=== PATIENT | female | born 1985 | race Caucasian/White ===

== ENCOUNTER 2023-05-16 06:55 | Day surgery (SDC) | payer OTHER, SELFPAY ==
[2023-04-08 11:39] VITALS: BMI 37.1
[2023-04-08 13:32] VITALS: BMI 37.0
--- NOTE | 2023-05-16 08:21 | WPDANESEPPF ---
Anes - Initial Pre Proc Eval Procedure: Operation Date: 05/16/23 09:30 Proposed Procedures p Colonoscopy - Giovanny Carlos MD Date/Time: 05/16/23 08:21 Surgeon: Giovanny Carlos MD Pre Op Diagnosis: Constipation, Hemorrhage of Anus and Rectum Patient Data Age: 37 Gender: F Height: 1.52 m Weight: 86.35 kg Allergies Allergy/AdvReac Type Severity Reaction Status Date / Time No Known Allergies Allergy Verified 05/16/23 08:10 Home Medications Medication Instructions Recorded Confirmed Type linaclotide 145 mcg capsule 145 mcg PO DAILY 04/05/23 05/16/23 History (Linzess) multivitamin (Daily Multi-Vitamin 1 tablet PO DAILY 04/05/23 05/16/23 History tablet) psyllium husk 0.52 gram capsule 0.52 g PO DAILY 04/05/23 05/16/23 History (Daily Fiber) benzonatate 200 mg capsule 200 mg PO TID #90 caps 04/22/23 05/16/23 Rx codeine 10 mg-guaifenesin 100 mg/5 5 ml PO Q6H PRN flu symptoms #250 04/22/23 05/16/23 Rx mL oral liquid mL Patient hx anesthesia problems: none Family hx anesthesia problems: none Results Review: All pre-operative results and documents have been reviewed as part of the pre-operative evaluation. [facility] Past Medical History Medical History Abdominal bloating Appendicitis BRBPR (bright red blood per rectum) Chronic constipation Gallbladder & bile duct stone, acute cholecystitis and obstruction Mucus in stool Obesity Ovarian mass R ovary Tenesmus Surgical History Surgical History H/O oophorectomy R side Hx of appendectomy Hx of cholecystectomy Hx of tonsillectomy Family History Family History Father Hypertension Heart disease Grandparent Diabetes mellitus Heart disease Hypertension Social History Social History Social History: Smoking status: Never smoker Second hand tobacco smoke exposure: No Alcohol intake: current Alcohol use details: rarely Substance use: never Substance use type: does not use Lack of Transportation: No Lack of Food: Never True Current Housing: I Have Housing Concerned About Future Housing: No Difficulty Paying Gas/Electric Bills: No Difficulty Paying for Meds: No Currently Unemployed: No Education: Bachelor's Degree Difficulty w/ Childcare or Family Care: No Living arrangements: with family Occupation/Education: occupation Additional occupation/education comments: Teacher Gender identity (if verbalized by the patient): Female Sexual Orientation (if Verbalized by the Patient): Straight or Heterosexual Spiritual care concerns: No Anes - Eval Final PreProcedure Day of Procedure 05/16/23 08:21 Patient weight: obese Heart: regular rate and rhythm Lungs: clear to auscultation Airway: Mallampati scale class II Neurological: alert and oriented Last oral intake: >/= 8 hours ASA classification: II Emergent: no Anesthetic plan: proceed Anesthesia type and monitoring: general GIVS and standard monitoring Results Review: All pre-operative results and documents have been reviewed as part of the pre-operative evaluation. Informed Consent: The patient's anesthetic plan and its attendant risks and benefits were discussed with the patient/family/POA. Questions were solicited and answers provided to the satisfaction of the patient/family/POA.
[2023-05-16 08:22] VITALS: BP 126/88; PULSE 89; RESP 16; TEMP 36.9; O2SAT 98
[2023-05-16] MEDS: LACTATED RINGERS 1,000 ML 150 ML IV CONT (08:29)
--- NOTE | 2023-05-16 08:57 | PM.HPGS ---
History of Present Illness History of Present Illness Consent: Risks, benefits, and alternatives have been discussed and questions answered. Patient agrees to proceed with procedure. Chief complaint: Constipation, Hemorrhage of Anus and Rectum Narrative: Paty Cantu is a 37 year old female with chronic constipation on linzess, never had colonoscopy Review of Systems Constitutional: Constitutional: Denies headache(s) and Denies weakness Eyes: Eyes: Denies blurry vision ENT: Reports Normal hearing present, Denies headache(s) and Denies neck pain Cardiovascular: Cardiovascular: Denies chest pain and Denies dyspnea Respiratory: Respiratory: Denies dyspnea Gastrointestinal: Gastrointestinal: Reports no additional gastrointestinal complaints Genitourinary: Genitourinary: Denies dysuria Musculoskeletal: Musculoskeletal: Denies neck pain Integumentary/Breasts: Skin/Breast: Denies dry skin Neurologic: Reports Normal hearing present, Denies headache(s) and Denies weakness Psychiatric: Psychiatric: Denies anxiety Endocrine: Endocrine: Denies change in body appearance Hematologic/Lymphatic: Hematologic/Lymphatic: Denies easy bleeding Allergic/Immunologic: Allergic/Immunologic: Denies urticaria PMFSH Past Medical History Medical History Abdominal bloating Appendicitis BRBPR (bright red blood per rectum) Chronic constipation Gallbladder & bile duct stone, acute cholecystitis and obstruction Mucus in stool Obesity Ovarian mass R ovary Tenesmus Surgical History Surgical History H/O oophorectomy R side Hx of appendectomy Hx of cholecystectomy Hx of tonsillectomy Family History Family History Father Hypertension Heart disease Grandparent Diabetes mellitus Heart disease Hypertension Social History Social History Social History: Smoking status: Never smoker Second hand tobacco smoke exposure: No Alcohol intake: current Alcohol use details: rarely Substance use: never Substance use type: does not use Lack of Transportation: No Lack of Food: Never True Current Housing: I Have Housing Concerned About Future Housing: No Difficulty Paying Gas/Electric Bills: No Difficulty Paying for Meds: No Currently Unemployed: No Education: Bachelor's Degree Difficulty w/ Childcare or Family Care: No Living arrangements: with family Occupation/Education: occupation Additional occupation/education comments: Teacher Gender identity (if verbalized by the patient): Female Sexual Orientation (if Verbalized by the Patient): Straight or Heterosexual Spiritual care concerns: No Meds Home Medications and Allergies Home Medications Medication Instructions Recorded Confirmed Type linaclotide 145 mcg capsule 145 mcg PO DAILY 04/05/23 05/16/23 History (Linzess) multivitamin (Daily Multi-Vitamin 1 tablet PO DAILY 04/05/23 05/16/23 History tablet) psyllium husk 0.52 gram capsule 0.52 g PO DAILY 04/05/23 05/16/23 History (Daily Fiber) benzonatate 200 mg capsule 200 mg PO TID #90 caps 04/22/23 05/16/23 Rx codeine 10 mg-guaifenesin 100 mg/5 5 ml PO Q6H PRN flu symptoms #250 04/22/23 05/16/23 Rx mL oral liquid mL Allergies Allergy/AdvReac Type Severity Reaction Status Date / Time No Known Allergies Allergy Verified 05/16/23 08:10 Vital Signs Vital Signs - 24 hr 05/16/23 08:22 Temperature 98.4 F Pulse Rate 89 Respiratory Rate 16 Blood Pressure 126/88 Pulse Oximetry 98 Oxygen Delivery Room Air Exam Const: General: comfortable and no acute distress HENMT: Face/Nose/Sinus: Normal nares present Eyes: General: appearance normal, both eyes and all related structures Neck: Neck: no JVD Resp: Auscul
[2023-05-16 09:22] VITALS: BP 116/71; PULSE 69; RESP 16; O2SAT 100
[2023-05-16 09:33] VITALS: BP 117/57; PULSE 69; RESP 16; O2SAT 100
[2023-05-16 09:44] VITALS: BP 121/92; PULSE 95; RESP 16; O2SAT 100
== END 2023-05-16 09:50 | disposition home or self-care (01) ==
PROVIDERS: PCP Family Medicine; Visit Provider Internal Medicine Gastroenterology
PROC: 0DJD8ZZ Inspection of Lower Intestinal Tract, Via Natural or Artificial Opening Endoscopic (ICD-10-PCS; CPT 45378; principal; 2023-05-16 09:30)
DX: K59.00 Constipation, unspecified (principal); K64.8 Other hemorrhoids
CPT/HCPCS: 45378

== ENCOUNTER 2023-09-07 15:41 | Outpatient (CLI) | payer OTHER, SELFPAY ==
--- NOTE | ~2023-09-07 | US_ITS ---
EXAMINATION: US pelvic complete DATE: 09/07/2023 16:04 INDICATION: Pelvic pain. TECHNIQUE: Multiple transabdominal and transvaginal sonographic images of the pelvis were obtained. COMPARISON: None. FINDINGS: TRANSABDOMINAL ULTRASOUND: The uterus measures 6.8 x 3.1 x 3.1 cm. There is no free fluid in the pelvis. TRANSVAGINAL ULTRASOUND: The endometrial complex measures 4 mm in thickness. The right ovary is not visualized and reportedly absent. The left ovary measures 3.4 x 1.8 x 2.6 cm. There is normal vascular flow in left ovary. IMPRESSION: 1. Normal pelvis status post right oophorectomy. Reviewed, dictated and finalized at location E. [employer]ISTR[employer]
== END 2023-09-07 15:42 ==
LOC: MICIMG 15:42
PROVIDERS: PCP Nurse Practitioner; Visit Provider Nurse Practitioner
DX: R10.2 Pelvic and perineal pain (principal); Z90.722 Acquired absence of ovaries, bilateral
CPT/HCPCS: 76856

== ENCOUNTER 2024-05-19 12:01 | Emergency (ER) | payer OTHER, SELFPAY ==
[2024-05-19 12:12] VITALS: BP 125/70; PULSE 106; RESP 16; TEMP 36.8; O2SAT 99
--- NOTE | 2024-05-19 12:18 | ED_ITS ---
HPI - General Adult General Chief complaint: Upper Respiratory Infection Stated complaint: fever / cough Time Seen by Provider: 05/19/24 12:19 Source: patient Mode of arrival: ambulatory Limitations: no limitations History of Present Illness HPI narrative: 38-year-old female patient presents to the [facility] with complaints of the fever/ cough for the past 2-3 days. 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 Patient denies any history of asthma but states at night she has been feeling wheezy. Patient states that she has been congested, feeling like her ears are full but denies a sore throat denies pain to the ears. Denies any chest pain or shortness of breath. Does have a dry cough. Related Data Home Medications Medication Instructions Recorded Confirmed multivitamin (Daily Multi-Vitamin 1 tablet PO DAILY 04/05/23 05/19/24 tablet) psyllium husk 0.52 gram capsule 0.52 g PO DAILY 04/05/23 05/19/24 (Daily Fiber) norethindrone 1 mg-ethinyl 1 tablet PO DAILY 05/19/24 05/19/24 estradiol 20 mcg (21)-iron 75 mg (7) tablet (Blisovi Fe 07/23 (28)) semaglutide (weight loss) 1 mg/0.5 1 mg subcut WEEKLY 05/19/24 05/19/24 mL subcutaneous pen injector Allergies Allergy/AdvReac Type Severity Reaction Status Date / Time No Known Allergies Allergy Verified 05/19/24 12:04 Review of Systems Review of Systems: CONSTITUTIONAL: Positive fever, denieschills, or sweats. EYES: Denies visual changes, redness, or discharge. ENT: positive rhinorrhea, congestion, denies sore throat, or otalgia. CARDIOVASCULAR: Denies chest pain, palpitations, or edema. RESPIRATORY: positive cough denies dyspnea. GASTROINTESTINAL: Denies abdominal pain, nausea, vomiting, or diarrhea. GENITOURINARY: Denies dysuria or hematuria. SKIN: Denies rash or itching. MUSCULOSKELETAL: Denies back pain, joint pain, or myalgia. NEUROLOGIC: Denies headache, numbness, or weakness. PSYCHIATRIC: Denies anxiety or depression. [facility] Past Medical History Medical History Abdominal bloating Appendicitis BRBPR (bright red blood per rectum) Chronic constipation Gallbladder & bile duct stone, acute cholecystitis and obstruction Mucus in stool Obesity Ovarian mass R ovary Tenesmus Surgical History Surgical History H/O oophorectomy R side Hx of appendectomy Hx of cholecystectomy Hx of tonsillectomy Family History Family History Father Hypertension Heart disease Grandparent Diabetes mellitus Heart disease Hypertension Social History Social History Social History: Smoking status: Never smoker Second hand tobacco smoke exposure: No Alcohol intake: current Alcohol use details: rarely Substance use: never Substance use type: does not use Lack of Transportation: No Lack of Food: Never True Current Housing: I Have Housing Concerned About Future Housing: No Difficulty Paying Gas/Electric Bills: No Difficulty Paying for Meds: No Currently Unemployed: No Education: Bachelor's Degree Difficulty w/ Childcare or Family Care: No Living arrangements: with family Occupation/Education: occupation Additional occupation/education comments: Teacher Gender identity (if verbalized by the patient): Female Sexual Orientation (if Verbalized by the Patient): Straight or Heterosexual Spiritual care concerns: No Comments At the time of my signature I agree with nursing past medical history, surgical, social, and family history. There is no relevant family history pertinent to the presenting complaint. Exam Narrative: GENERAL: Well-appearing, well-nourished, and in no acute distress. HEAD: Normocephalic, atraumatic. EYES: PERRLA and EOMI. ENT: Nares with erythema edema noted bilaterally, no rhinorrhea or epistaxis. Mucous membranes moist. posterior pharynx with no erythema, tonsillar enlargement, exudates or lesions present. Bilateral TMs do appear cloudy but no erythema or signs symptoms of infection. NECK: Supple. No lymphadenopathy CHEST: Clear to auscultation. No respiratory distress. HEART: Regular rate and rhythm. No murmur heard. Normal peripheral pulses. ABDOMEN: Soft, nontender, nondistended, normal active bowel sounds. EXTREMITIES: Normal range of motion. No edema. SKIN: Warm, dry, no rash. NEURO: No focal deficits. Alert and oriented x3. Course Course Level of Care: Express Care Visit Vital Signs Vital signs: Vital Signs Temperature 36.8 C 05/19/24 12:12 Pulse Rate 106 H 05/19/24 12:12 Respiratory Rate 16 05/19/24 12:12 Blood Pressure 125/70 05/19/24 12:12 Pulse Oximetry 99 05/19/24 12:12 Oxygen Delivery Room Air 05/19/24 12:12 Temperature 36.8 C 05/19/24 12:12 Pulse Rate 106 H 05/19/24 12:12 Respiratory Rate 16 05/19/24 12:12 Blood Pressure 125/70 05/19/24 12:12 Pulse Oximetry 99 05/19/24 12:12 Oxygen Delivery Room Air 05/19/24 12:12 Vital signs reviewed. Medical Decision Making MDM Narrative Medical decision making narrative: notified patient she is negative for flu and COVID. Discussed with her that this is most likely a virus and should resolve in the next 5-10 days. Discussed with patient I do not have any concerns for pneumonia since her lungs are nice and clear. Discussed with patient that she can not continue taking [id number] medication to help with symptoms and I will prescribe her some Tessalon Perles to help with the cough. Patient verbalized understanding denies any other questions or concerns at this time. Differential Diagnosis Differential Diagnosis: Differential diagnosis: Allergic rhinitis, chronic sinusitis, tonsillitis, acute sinusitis, infectious mononucleosis, seasonal influenza, pertussis, diphtheria, meningococcal disease, viral syndrome, viral bronchitis, RSV, COVID- 19 Vital Signs Vital Signs: Vital Signs Temperature 36.8 C 05/19/24 12:12 Pulse Rate 106 H 05/19/24 12:12 Respiratory Rate 16 05/19/24 12:12 Blood Pressure 125/70 05/19/24 12:12 Pulse Oximetry 99 05/19/24 12:12 Oxygen Delivery Room Air 05/19/24 12:12 Temperature 36.8 C 05/19/24 12:12 Pulse Rate 106 H 05/19/24 12:12 Respiratory Rate 16 05/19/24 12:12 Blood Pressure 125/70 05/19/24 12:12 Pulse Oximetry 99 05/19/24 12:12 Oxygen Delivery Room Air 05/19/24 12:12 Critical Care Time Critical Care Time Critical Care Time: No Discharge Plan Discharge Clinical Impression: Viral URI with cough Patient Disposition: Home, Self-Care Condition: Stable Instructions: Antibiotic Form, Viral Syndrome (ED) Additional Instructions: Viral illness may last between 7-12days; antibiotic is NOT recommended at this time. Recommend antihistamine such as Benadryl at night time and Claritin/Zyrtec/Lurdes during the day Cough syrup may cause drowsiness; avoid driving or take it at night time. Also, recommend symptomatic treatment includes: rest, fluids, and increase humidity of the air at home. Recommend Acetaminophen or nonsteroidal anti-inflammatory agents (NSAIDs) as directed in the bottle to reduce fever and/pain/headache. Avoid smoking/second-hand smoke. Limit visits to areas with large crowds. Please schedule a follow-up visit with your personal physician for further evaluation and treatment within 3-5days. Including recheck and discussion of your blood pressure. If your symptoms persist, change or worsen significantly before you can contact your personal physician then please, without delay, go to the emergency department for further evaluation. Prescriptions: New benzonatate 200 mg capsule 200 mg PO TID PRN (Reason: cough) 10 Days Qty: 30 0RF No Action norethindrone-e.estradiol-iron [Blisovi Fe 07/23 (28)] 1 mg-20 mcg (21)/75 mg (7) tablet 1 tablet PO DAILY semaglutide (weight loss) 1 mg/0.5 mL Pen Injector 1 mg SUBCUT WEEKLY Rx Instructions: administer weeks 9 through 12 of therapy psyllium husk [Daily Fiber] 0.52 gram capsule 0.52 g PO DAILY multivitamin [Daily Multi-Vitamin] Tablet 1 tablet PO DAILY Linzess 145 mcg capsule 145 mcg PO DAILY Qty: 90 3RF Follow-up/Referrals: Rachel Edmond MD [Primary Care Provider] - Time of Disposition: 12:37
[2024-05-21 10:03] LABS: EDCOVIDSCREEN Negative (Negative); EDINFLUASCREEN Negative (Negative); EDINFLUBSCREEN Negative (Negative)
== END 2024-05-19 12:40 | disposition home or self-care (01) ==
PROVIDERS: Emergency Provider Nurse Practitioner Family; PCP Family Medicine
DX: J06.9 Acute upper respiratory infection, unspecified (principal); Z20.822 Contact with and (suspected) exposure to COVID-19; E66.9 Obesity, unspecified; Z68.36 Body mass index [BMI] 36.0-36.9, adult
CPT/HCPCS: 87426; 87635; 87804; 99213; G0463

== ENCOUNTER 2024-05-22 14:15 | Outpatient (CLI) | payer OTHER, SELFPAY ==
--- NOTE | ~2024-05-22 | XR_ITS ---
CHEST RADIOGRAPH, PA AND LATERAL CLINICAL HISTORY: R05.9 - Cough, unspecified . COMPARISON: None available TECHNIQUE: PA and lateral views of the chest. FINDINGS The cardiomediastinal silhouette is unremarkable. The lungs are clear. Visualized osseous structures and soft tissues are unremarkable. IMPRESSION: No focal infiltrate or effusion. Reviewed, dictated and finalized at location A. [employer]
== END 2024-05-22 14:16 | disposition home or self-care (01) ==
PROVIDERS: PCP Family Medicine; Visit Provider Physician Assistant
DX: R05.9 Cough, unspecified (principal)
CPT/HCPCS: 71046

== ENCOUNTER 2025-03-22 18:00 | Emergency (ER) | payer OTHER, SELFPAY ==
[2025-03-22 18:16] VITALS: BP 125/79; PULSE 73; RESP 18; TEMP 36.4; O2SAT 100
--- NOTE | 2025-03-22 18:30 | ED.URI ---
HPI - URI/Sore Throat General Chief Complaint: Upper Respiratory Infection Stated Complaint: sore throat Time Seen by Provider: 03/22/25 18:30 Source: patient, RN notes reviewed and old records reviewed Mode of arrival: ambulatory Limitations: no limitations History of Present Illness HPI Narrative: 39 year old female who presents to [facility] care with complaints of>2 weeks ago she went to [place] and on return having dry cough, ST,and lost voice with fatigue and tested self for COVID which was negative. Patient reports that she has had intermittent cough, post nasal drainage and has had sore throat continuing. Patient states that she has been taking Mucinex and also Ibuprofen for her complaints. Patient reports no known fevers chills or sweat. MD elicited complaint: cough and sore throat Pertinent past history: other (sinus problems) Onset (ago): week(s) (2) Severity: moderate Able to tolerate fluids by mouth: Yes Treatments prior to arrival: ibuprofen and other (Mucinex) Related Data Home Medications ?Medication ?Instructions ?Recorded ?Confirmed ?Last Taken ?Type multivitamin (Daily Multi-Vitamin 1 tablet PO DAILY 04/05/23 03/22/25 05/14/23 History tablet) psyllium husk 0.52 gram capsule 0.52 g PO DAILY 04/05/23 03/22/25 05/14/23 History (Daily Fiber) norethindrone 1 mg-ethinyl 1 tablet PO DAILY 05/19/24 03/22/25 Unknown History estradiol 20 mcg (21)-iron 75 mg (7) tablet (Blisovi Fe 07/23 (28)) semaglutide (weight loss) 1 mg/0.5 1 mg subcut WEEKLY 05/19/24 03/22/25 Unknown History mL subcutaneous pen injector phentermine 15 mg capsule mg 03/22/25 Unknown History topiramate 25 mg tablet mg 03/22/25 Unknown History Allergies Allergy/AdvReac Type Severity Reaction Status Date / Time No Known Allergies Allergy Verified 03/22/25 18:19 Review of Systems Review of Systems: CONSTITUTIONAL:Reports malaise, no chills, sweats, or fever. EYES: Denies visual changes, redness, or discharge. ENT: Reports rhinorrhea, congestion, sinus pressure, no otalgia and positive for sore throat. CARDIOVASCULAR: Denies chest pain, palpitations, or edema. RESPIRATORY: Reports cough.? Denies dyspnea. GASTROINTESTINAL: Denies abdominal pain, nausea, vomiting, diarrhea SKIN: Denies rash or itching. MUSCULOSKELETAL: Denies myalgia. NEUROLOGIC: Denies headache. All systems reviewed & are unremarkable except as noted in HPI and below PMFSH Past Medical History Medical History Obesity Mucus in stool Abdominal bloating BRBPR (bright red blood per rectum) Tenesmus Chronic constipation Appendicitis Ovarian mass R ovary Gallbladder & bile duct stone, acute cholecystitis and obstruction Surgical History Surgical History H/O oophorectomy R side Hx of appendectomy Hx of cholecystectomy Hx of tonsillectomy Family History Family History Father Hypertension Heart disease Grandparent Diabetes mellitus Heart disease Hypertension Social History Social History Social History: Smoking status: Never smoker Second hand tobacco smoke exposure: No Alcohol intake: current Alcohol use details: rarely Substance use: never Substance use type: does not use Lack of Transportation: No Lack of Food: Never True Current Housing: I Have Housing Concerned About Future Housing: No Difficulty Paying Gas/Electric Bills: No Difficulty Paying for Meds: No Currently Unemployed: No Education: Bachelor's Degree Difficulty w/ Childcare or Family Care: No Living arrangements: with family Occupation/Education: occupation Additional occupation/education comments: Teacher Gender identity (if verbalized by the patient): Female Sexual Orientation (if Verbalized by the Patient): Straight or Heterosexual Spiritual care concerns: No Comments At time of signature, agree with nursing past medical, surgical, social and family history. There is no relevant family history pertinent to the presenting complaint Exam Narrative: GENERAL: Well-appearing, well-nourished, and in no acute distress. HEAD: Normocephalic EYES: PERRLA, conjunctivae clear ENT: Nares clear, turbinates edematous and erythematous, clear discharge,sinus pressure. Mucous membranes moist. TM pearly alcantara with dull light reflex bilaterally; no tragal tenderness. Oropharynx erythematous without lesions. Tonsils not present and throat without exudate, no drooling, positive for hoarseness, no trismus, uvula midline.post nasal drainage present. NECK: Supple. No lymphadenopathy CHEST: Clear to auscultation, breath sounds equal. No wheezing, rhonchi, rales, or stridor. No respiratory distress, speaks in full sentences. cough noted, SAO2 100% on room air HEART: Regular rate and rhythm. No murmur heard. SKIN: Warm, dry, no rash. NEURO: Alert and oriented x3. PSYCH: Normal mood and affect Course Course Emergency Course: Patient is aware of diagnosis, understands and agrees to treatment plan.? Anticipatory guidance given.? Patient agrees to follow-up as directed and is aware of reasons to seek care at the emergency department. Portions of this record may have been created with voice recognition software Level of Care: Express Care Visit Vital Signs Vital signs: Vital Signs Temperature 36.4 C 03/22/25 18:16 Pulse Rate 73 03/22/25 18:16 Respiratory Rate 18 03/22/25 18:16 Blood Pressure 125/79 03/22/25 18:16 Pulse Oximetry 100 03/22/25 18:16 Oxygen Delivery Room Air 03/22/25 18:16 Temperature 36.4 C 03/22/25 18:16 Pulse Rate 73 03/22/25 18:16 Respiratory Rate 18 03/22/25 18:16 Blood Pressure 125/79 03/22/25 18:16 Pulse Oximetry 100 03/22/25 18:16 Oxygen Delivery Room Air 03/22/25 18:16 Reviewed MDM - URI/Sore Throat MDM Narrative Medical decision making narrative: Differential diagnosis considered: Rowley virus, strep pharyngitis, allergic rhinitis, upper respiratory tract infection, sinusitis, rhinosinusitis, nasopharyngitis. viral pharyngitis, otitis media, otitis externa, pneumonia, bronchitis, viral cough syndrome, viral syndrome, and influenza.? Exam findings show no acute concerns or changes; patient is non-toxic appearing and is in no distress.? Patient is appropriate for outpatient treatment and follow-up. Differential Diagnosis Differential diagnosis: Likely upper respiratory infection, sinusitis, viral infection, pharyngitis and other Medical Records Attestation: I reviewed the patient's medical records. Lab Data Attestation: I reviewed the patient's lab results. Lab results narrative: strep screen negative, strep culture sent Critical Care Time Critical Care Time Critical Care Time: No Discharge Plan Discharge Clinical Impression: Sinusitis Qualifiers: Sinusitis location: pansinusitis Chronicity: acute Recurrence: non-recurrent Qualified Code(s): J01.40 - Acute pansinusitis, unspecified Patient Disposition: Home Condition: Stable Instructions: Antibiotic Form, Sinusitis (ED) Additional Instructions: Increase fluids especially juices and water Jmun-hhr-oifsote cough and cold medicine of your choice for your symptoms Recommend Delsym or Robitussin cough syrup Tylenol ibuprofen for any fever pain Zyrtec Claritin or Lurdes daily may include plain Sudafed heat to the face 20-30 minutes 4-6 times a day for pain Salt water gargles, throat lozenges or throat sprays as desired Antibiotic as directed--finished the medication If your symptoms persist, change or worsen significantly before you can contact your personal physician then please, without delay, go to the emergency department for further evaluation. Follow-up with PCP in 7-10 days or sooner if needed Patient Language: Syriac Prescriptions: New amoxicillin-pot clavulanate 875-125 mg tablet 1 tablet PO Q12H Qty: 20 0RF Rx Instructions: take with food recommend taking probiotic while taking this medication No Action norethindrone-e.estradiol-iron [Blisovi Fe 07/23 (28)] 1 mg-20 mcg (21)/75 mg (7) tablet 1 tablet PO DAILY semaglutide (weight loss) 1 mg/0.5 mL Pen Injector 1 mg SUBCUT WEEKLY Rx Instructions: administer weeks 9 through 12 of therapy phentermine 15 mg capsule topiramate 25 mg tablet psyllium husk [Daily Fiber] 0.52 gram capsule 0.52 g PO DAILY multivitamin [Daily Multi-Vitamin] Tablet 1 tablet PO DAILY Linzess 145 mcg capsule 145 mcg PO DAILY Qty: 90 3RF Follow-up/Referrals: Xuan Ardon PA-C [Primary Care Provider, [facility]] Time of Disposition: 18:51 Quality Xiomy Coma Scale Eyes: Open Verbal: Oriented and Alert Motor: Follows Commands Xiomy Coma Total Score: 15
[2025-03-22 18:55] LABS: EDSTREPNEGPOS1 Negative (Negative)
== END 2025-03-22 18:56 | disposition home or self-care (01) ==
PROVIDERS: Emergency Provider Registered Nurse; PCP Physician Assistant
DX: J01.40 Acute pansinusitis, unspecified (principal); E66.9 Obesity, unspecified; Z68.36 Body mass index [BMI] 36.0-36.9, adult
CPT/HCPCS: 87081; 87880; 99213; G0463

== ENCOUNTER 2025-05-29 13:00 | Outpatient (CLI) | payer OTHER, SELFPAY ==
--- NOTE | ~2025-05-29 | MM_ITS ---
EXAMINATION: MM screening moshe BI w rosaline HISTORY: Screening. TECHNIQUE: Craniocaudal and mediolateral oblique 3-D tomosynthesis images were obtained and synthetic 2-D images were generated. CAD analysis was submitted and interpreted. COMPARISON: None available. BREAST PARENCHYMAL COMPOSITION: FINDINGS: There is an asymmetry at the anterior medial aspect of the left craniocaudal view. There are no suspicious calcifications. No unexplained architectural distortion is seen. There are no skin or nipple abnormalities identified. There is no adenopathy seen on the images submitted. IMPRESSION: Asymmetry on the left for which additional mammographic and possibly sonographic imaging is recommended. BI-RADS: 0 - Incomplete - needs additional imaging evaluation and/or prior mammograms for comparison. Reviewed, dictated and finalized at location [facility] IMPRESSION: Asymmetry on the left for which additional mammographic and possibly sonographi c imaging is recommended. BI-RADS: 0 - Incomplete - needs additional imaging evaluation and/or prior mamm ograms for comparison.
--- OUTSIDE RECORDS SUMMARY | 2025-05-29 13:09 | XMS_ITS | Clinical Summary ---
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 Gender Identity Not on file Sexual Orientation Not on file Plan of Treatment Health Maintenance Due Date Last Done Comments Hepatitis C Virus (HCV) Screening 1984 TdaP Immunization 1984 Hepatitis B Immunization (1 of 3 - 19+ 3-dose series) 12/21/2003 Pap Smear 2005 Human Papillomavirus (HPV) Immunization (1 - 3-dose SCDM series) 12/21/2011 Cervical Cancer Screening (CCS) 2014 HPV/Cotest 2014 Influenza Immunization (#1) 2025 SARS-COV-2 Immunization ( season) 2025 Respiratory Syncytial Virus (RSV) Immunization (Adult) (1 - 1-dose 75+ series) 12/21/2059 Meningococcal Immunization (ACWY) Aged Out No longer eligible based on patient's age to complete this topic Pneumococcal Immunization Combined Aged Out No longer eligible based on patient's age to complete this topic Rotavirus Immunization Aged Out No lo nger eligible based on patient's age to complete this topic
--- OUTSIDE RECORDS SUMMARY | 2025-05-29 13:09 | XMS_ITS | Encounter Summary ---
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 Gender Identity Not on file Sexual Orientation Not on file documented as of this encounter Plan of Treatment Not on file documented as of this encounter Procedures Procedure Name Priority Date/Time Associated Diagnosis Comments HCG BETA BLOOD QUANTITATIVE STAT 05/19/2021 9:09 AM CORK SORTER documented in this encounter Results * HCG BETA BLOOD QUANTITATIVE (05/19/2021 9:09 AM CORK SORTER) hCG Quantitative <1.20 mIU/mL 05/19/20 12:02 PM CORK SORTER [facility] Blood BLOOD SPECIMEN / Unknown Venipuncture / Unknown 05/19/2021 9:09 AM CORK SORTER 05/19/2021 11:07 AM CORK SORTER Narrative [facility] - 05/19/2021 12:02 PM CORK SORTER hCG Reference Range, mIU/mL: Males 0-2.0 Non Females 0-6.0 Perimenopausal Females ages 41-55* 0-7.7 Postmenopausal Females age >55* 0-14 Females, Weeks after Last Menstrual Period 0.2-1 week 5-50 1 - 2 weeks 50-500 2 - 3 weeks 100-5000 3 - 4 weeks 500-10,000 4 - 5 weeks 1000-50,000 5 - 6 weeks 10,000-100,000 6 - 8 weeks 15,000-200,000 2 - 3 months 10,000-100,000 Trophoblastic Disease >100,000 *In higher than expected hCG in females > age 40, a serum FSH >20 IU/L makes unlikely. Maura Jefferson MD LAB - CHEMISTRY ORDERABLES Final Result [facility] [address] [place] [address] documented in this encounter Visit Diagnoses Not on filedocumented in this encounter
--- OUTSIDE RECORDS SUMMARY | 2025-05-29 13:09 | XMS_ITS | Clinical Summary ---
Author Organization [facility] Address [address] [place] [address] Care Team Providers Care Pumper Head Name Role Phone Unavailable Primary Care Provider Unavailabl e Source Comments [facility],non-owned Affiliates and Associated Physician Practices is amultiple site organization consisting of ambulatory clinics and hospital sitesin [place], [place], [place] and [place]. This disclosure is being madepursuant to the Care Everywhere program and may not contain all information available regarding this patient. 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 Gender Identity Not on file Sexual Orientation Not on file Plan of Treatment Health Maintenance Due Date Last Done Comments LIPID TESTING 1984 MAMMOGRAM 1984 HIV SCREENING 12/21/1999 HEPATITIS C SCREENING 12/16/2002 DTAP/TDAP/TD VACCINES (1 - Tdap) 12/21/2003 HEPATITIS B VACCINE (1 of 3 - 19+ 3-dose series) 12/21/2003 PAP SMEAR 2005 HPV VACCINE (1 - 3-dose SCDM series) 12/21/2011 Cervical Cancer Screening 2014 PAP with HPV 2014 DEPRESSION SCREENING 07/04/2024 COVID-19 VACCINE (1 - 2024-2 6 season) 2025 INFLUENZA VACCINE (#1) 2025 ZOSTER VACCINE (1 of 2) 2034 HIB VACCINE Aged Out No longer eligi ble based on patient's age to complete this topic MENINGOCOCCAL (Group B) VACC INE SHARED DECISION-MAKING Aged Out No longer eligibl e based on patient's age to complete this topic MENINGOCOCCAL GROUPS A/C/Y/W VACCINE Aged Out No longer eligible b ased on patient's age to complete this topic PNEUMOCOCCAL VACCINE Aged Out No long er eligible based on patient's age to complete this topic
--- OUTSIDE RECORDS SUMMARY | 2025-05-29 13:09 | XMS_ITS | Clinical Summary ---
Author Organization [facility] Address [address] [place] [address] Care Team Providers Care Momd Teacher Name Role Phone Kait Moeller MD Primary Care Provider [phone] Allergies No known active allergies Medications predniSONE (DELTASONE) 10 mg tablet Take 6 tabs po daily x 2 day Take 5 tabs po daily x 1 day Take 4 tabs po daily x 1 day Take 3 tabs po daily x 1 day Take 2 tabs po daily x 1 day Take 1 tabs po daily x 1 day 27 tablet 04/09/2022 Active Social History Tobacco Use Types Packs/Day Years Used Date Smoking Tobacco: Never Smokeless Tobacco: Never Alcohol Use Standard Drinks/Week Comments Yes 0 (1 standard drink = 0.6 oz pur e alcohol) socially Comments No Sex and Gender Information Value Date Recorded Sex Assigned at Not on file Legal Sex Female 4:40 PM CDT Gender Identity Not on file Sexual Orientation Not on file Last Filed Vital Signs Vital Sign Reading Time Taken Comments Blood Pressure 122/85 04/09/2022 1:51 PM CDT Pulse 84 04/09/2022 1:51 PM CDT Temperature 37 C (98.6 F) 04/09/2022 1:51 PM CDT Respiratory Rate 18 04/09/2022 1:51 PM CDT Oxygen Saturation 100% 04/09/2022 1:51 PM CDT Inhaled Oxygen Concentration - - Weight 85.5 kg (188 lb 7.9 oz) 04/09/2022 1:51 P M CDT Height 152.4 cm (5') 04/09/2022 1:51 PM CDT Body Mass Index 36.81 04/09/2022 1:51 PM CDT Plan of Treatment Health Maintenance Due Date Last Done Comments Cervical Cancer Screening Pap Smear (Age 30 to 64) Every 3 Years 1984 Annual Physical 12/21/1987 Hepatitis C 2002 HPV Vaccines (1 - 3-dose SCDM series) 12/21/2011 Cervical Cancer Screening Pap with HPV Testing (Age 30 to 64) Every 5 Years 2014 Cervical Cancer Screening with HPV 2014 Mammogram Screening 2024 COVID-19 Vaccine ( season) 2025 06/14/2021, 09/13/2020, 08/20/2020 Influenza Adult (#1) 2025 05/15/2021, 05/13/2021, 04/18/2020, Additional history exists DTaP, Tdap and Td Vaccines (3 - Td or Tdap) 05/14/2026 05/14/2016, 12/30/1998, 02/09/1990, Additional history exists Hepatitis B Vaccines Completed 08/11/1999, 03/10/1999, 02/04/1999 Hepatitis A Vaccines Aged Out No long er eligible based on patient's age to complete this topic Meningococcal B Vaccine Aged Out No l onger eligible based on patient's age to complete this topic Meningococcal Vaccine Aged Out No mark kelli eligible based on patient's age to complete this topic Pneumococcal Vaccine: Pediatrics (0 to 5 Years) and At-Risk Patients (6 to 49 Years) Aged Out No longer eligible based on patient's age to complete this topic RSV Immunizations Under 20 Months Aged Out No longer eligible based on patient's age to complete this topic Insurance [facility] Care Teams Momd Teacher Relationship Specialty Start Date End Date Kait Moeller MD [address], [place] [address] PCP - General 11/14/13
--- OUTSIDE RECORDS SUMMARY | 2025-05-29 13:09 | XMS_ITS | Encounter Summary ---
Author Organization [facility] Address [address] [place] [address] Care Team Providers Care Barrel Handler Name Role Phone Unavailable Primary Care Provider Unavailabl e Encounter Details Date Type Department Care Team (Late st Contact Info) Description 05/22/2021 Lab Requisition [facility] [address] [place] [address] Maura Jefferson MD Social History Tobacco Use Types Packs/Day Years Used Date Smoking Tobacco: Never Assessed Comments Unknown Sex and Gender Information Value Date Recorded Sex Assigned at Not on file Legal Sex Female 11:04 AM DATABASE DEVELOPER Gender Identity Not on file Sexual Orientation Not on file documented as of this encounter Plan of Treatment Not on file documented as of this encounter Procedures Procedure Name Priority Date/Time Associated Diagnosis Comments HCG BETA BLOOD QUANTITATIVE STAT 05/22/2021 11:47 AM DATABASE DEVELOPER documented in this encounter Results * HCG BETA BLOOD QUANTITATIVE (05/22/2021 11:47 AM DATABASE DEVELOPER) hCG Quantitative <1.20 mIU/mL 05/22/20 12:19 PM DATABASE DEVELOPER [facility] Blood BLOOD SPECIMEN / Unknown Venipuncture / Unknown 05/22/2021 11:47 AM DATABASE DEVELOPER 05/22/2021 11:47 AM DATABASE DEVELOPER Narrative [facility] - 05/22/2021 12:19 PM DATABASE DEVELOPER hCG Reference Range, mIU/mL: Males 0-2.0 Non [...] MD LAB - CHEMISTRY ORDERABLES Final Result [facility] [address] [place] [address] documented in this encounter Visit Diagnoses Not on filedocumented in this encounter
== END 2025-05-29 13:01 | disposition home or self-care (01) ==
LOC: CHSIMG 13:02
PROVIDERS: PCP Physician Assistant; Visit Provider Nurse Practitioner
DX: Z12.31 Encounter for screening mammogram for malignant neoplasm of breast (principal); R92.8 Other abnormal and inconclusive findings on diagnostic imaging of breast
CPT/HCPCS: 77063; 77067